=== PATIENT | male | born 1950 | race Caucasian/White ===

== ENCOUNTER 2023-05-05 05:19 | Observation (INO) ==
--- NOTE | 2023-03-30 12:02 | PAT Medication Instructions ---
Medication Instructions Date of Service March 30, 2023 Home Medications cholecalciferol (vitamin D3) 25 mcg (1,000 unit) capsule 1,000 units PO QAM gabapentin 300 mg capsule 300 mg PO BID fluticasone propionate 50 mcg/actuation nasal spray,suspension 1 spray intranasal QAM meloxicam 15 mg tablet 15 mg PO HS MEDICATION INSTRUCTIONS: Continue as directed fluticasone propionate 50 mcg/actuation nasal spray,suspension 1 spray intranasal QAM ASK your surgeon for instructions meloxicam 15 mg tablet 15 mg PO HS DO NOT take the morning of surgery cholecalciferol (vitamin D3) 25 mcg (1,000 unit) capsule 1,000 units PO QAM Take morning of surgery With a small sip of water, OTHERWISE NOTHING TO EAT OR DRINK AFTER MIDNIGHT: gabapentin 300 mg capsule 300 mg PO BID Take evening before surgery gabapentin 300 mg capsule 300 mg PO BID Other Notes If you have any questions please call us at [phone] or [phone] or [phone] or [phone]
--- NOTE | 2023-04-09 10:26 | Anesthesiology Consultation ---
Date of Service April 09, 2023 Assessment & Plan (1) Encounter for pre-operative examination: Chart Review Chart Review: Acceptable Risk for Surgery (pending PCP clearance 04/14/23) and Patient seen in Pre Admission Testing -Awaiting PCP clearance - scheduled next week (04/14/23) [facility] Pt currently scheduled as 23 hours observation. If surgeon decides to change patient to [facility] Day [facility], patient would be acceptable risk for TSA, pending p atient is motivated, has good support and surgeon's office completes [facility] preop requirements. Per PAT appt on 04/09/23, patient denies any recent travel or large group a ctivities. Pt is vaccinated for Covid. Will leave to surgeon's discretion if preop Covid testing needed. Educated on importance of using Covid precautions one week prior to surgery History Surgery Operation Date: 05/05/23 07:15 Proposed Procedures p Right Total Shoulder Arthroplasty Reverse - Dez Bojorquez MD Height/Weight Height: 5 ft 11 in Weight: 88.2 kg Allergies Allergy/AdvReac Type Severity Reaction Status Date / Time No Known Allergies Allergy Verified 03/30/23 10:46 Medications Home Medications Medication Instructions Recorded Confirmed Last Taken cholecalciferol (vitamin D3) 25 1,000 units PO QAM 08/11/19 03/30/23 Unknown mcg (1,000 unit) capsule gabapentin 300 mg capsule 300 mg PO BID 08/11/19 03/30/23 Unknown fluticasone propionate 50 1 spray intranasal QAM 03/30/23 03/30/23 Unknown mcg/actuation nasal spray,suspension meloxicam 15 mg tablet 15 mg PO HS 03/30/23 03/30/23 Unknown Past Medical History Medical History History of COVID-19 2021>resolved Exercise / Class Metabolic Activity II 4-5 Yardwork/Stairs/Walk up hill (one flight of stairs- no chest pain or SOB ) Past Family History Family History Mother Stroke Father Stroke Other No family history of adverse response to anesthesia Past Surgical History Surgical History H/O parathyroidectomy partial d/t elevated calcium level (around 2008) History of cataract surgery rt/left History of colonoscopy Lower extremity surgery planned left femur repair *hardware intact [place] teeth removed Past Anesthesia History No Hx of Anesthesia Complications and No Family Hx of Anesthesia Complications History of PONV No Hx of PONV and No Hx of Motion Sickness Social History Smoking Status: Never smoker Do You Dip or Chew Tobacco: No Hx Alcohol Use: No substance use type: does not use Review of Systems Occ snoring - no witnessed apnea- no sleep study Patient denies chest pain, shortness of breath, dyspnea on exertion, reflux, cough, wheezing, palpitations. No hx of seizures, stroke, [place]. No hx of blood clots or blood transfusions Physical Exam Vital Signs VITALS BP 164/84 P 60 TEMP 97.5 SP02 95% RESP 16 Constitutional no acute distress ENMT Mouth: no TMJ clicking Thyromental Distance: > or= 3.5 Finger Breadths (3.5) Mallampati Class: I Crowns to side teeth Neck neck extension not limited Respiratory normal respiratory effort; no respiratory distress Auscultation: lungs clear to auscultation bilaterally; no wheezes Cardiovascular Rate/Rhythm: regular rate and regular rhythm Heart Sounds: no murmur Vessels: no carotid bruit Musculoskeletal Spine: no pain with cervical ROM Extremities: extremities normal to inspection Psychiatric Orientation: alert Lab Results Anesthesia Preop Results Results Anesthesia Widget: WBC 4.64 K/ul (4.8-10.8) L 04/09/23 Hgb 15.8 g/dl (14.0-18.0) 04/09/23 Hct 46.6 % (42.0-52.0) 04/09/23 Plt 230 K/uL (130-400) 04/09/23 Na 138 mmol/L (136-145) 04/09/23 K 4.6 mmol/L (3.5-5.1) 04/09/23 Cl 104 mmol/L (98-107) 04/09/23 CO2 29 mmol/L (21-32) 04/09/23 BUN 20 mg/dl (6-23) 04/09/23 Creat 0.99 mg/dl (0.6-1.4) 04/09/23 Glucose Level 86 mg/dl (70-99(Fasting)) 04/09/23 PT 11.3 Seconds (9.0-12.0) 04/09/23 PTT 27.6 Seconds (21.0-31.0) 04/09/23 INR 1.0 (0.9-1.1) 04/09/23 Urine Color Yellow 04/09/23 Urine Appearance Clear (Clear) 04/09/23 Urine pH 5.5 (4.5-7.5) 04/09/23 Urine Specific [place] 1.011 (1.000-1.030) 04/09/23 Urine Protein Negative (Negative) 04/09/23 Urine Glucose (UA) Negative (Negative) 04/09/23 Urine Ketones Negative (Negative) 04/09/23 Urine Blood Negative (Negative) 04/09/23 Urine Nitrite Negative (Negative) 04/09/23 Urine Bilirubin Negative (Negative) 04/09/23 Urine Urobilinogen Negative (Negative) 04/09/23 Urine Leukocyte Esterase Negative (Negative) 04/09/23 Blood Type O Positive 04/09/23 Antibody Screen NEGATIVE 04/09/23 Testing Electrocardiogram Date: 04/09/23 Findings: + SB @ (56bpm ) Incomplete RBBB Chest X-Ray Date: 04/09/23 Findings: + NAD COVID-19 Risk Screen Screening Information COVID-19 Screen Date: 04/09/23 Exposure 21 Days Family/Household +COVID Last 21 Days: No Exposure 10 Days Any COVID Exposure Last 10 Days: No Symptoms Last 10 Days Experienced COVID Sx Last 10 Days: No + COVID 0-90 Days COVID + in Last 0-90 Days: No Risk Plan COVID Risk Plan: No Risk Identified Patient Education COVID Preop Screening Education Complete: Yes
--- NOTE | 2023-05-04 12:19 | History & Physical Report ---
Date of Service May 04, 2023 Assessment & Plan (1) Full thickness rotator cuff tear: Plan: Treatment options discussed with the patient. He has failed conservative measures and would like to proceed with surgery. Risks, benefits and alternatives to surgery including but not limited to infection, DVT, pain, stiffness, need for revision surgery, damage to blood vessels, damage to nerves, PE, , were discussed with the patient and they wish to proceed. Plan on right reverse total shoulder arthroplasty scheduled for 05/05/23 at [facility] with Dr. Bojorquez. All questions answered. Patient will f/u post op. Rotator cuff tear trauma status: traumatic Encounter type: subsequent encounter Laterality: right Qualified Code(s): S46.011D - Strain of muscle(s) and tendon(s) of the rotator cuff of right shoulder, subsequent encounter History of Present Illness Chief Complaint: Right shoulder pain Primary Care Provider: Yosef Luu MD 72yo male with no significant PMHx presents with ongoing right shoulder pain and dysfunction. He suffered a fall off of a ramp of a truck injuring his shoulder. MRI demonstrated massive, retracted tear of his rotator cuff. He has failed conservative measures and would like to proceed with surgery. Patient denies headaches, sweats, fevers, chills, double vision, blurred vision, cough, sore throat, dysphagia, chest pain, sob, wheezing, n/v/d/c, numbness, tingling, fatigue, urinary symptoms, mood disorders. ROS positive for right shoulder pain and stiffness. Allergies Allergy/AdvReac Type Severity Reaction Status Date / Time No Known Allergies Allergy Verified 03/30/23 10:46 Home Medications Medication Instructions Recorded Confirmed Type cholecalciferol (vitamin D3) 25 1,000 units PO QAM 08/11/19 03/30/23 History mcg (1,000 unit) capsule gabapentin 300 mg capsule 300 mg PO BID 08/11/19 03/30/23 History fluticasone propionate 50 1 spray intranasal QAM 03/30/23 03/30/23 History mcg/actuation nasal spray,suspension meloxicam 15 mg tablet 15 mg PO HS 03/30/23 03/30/23 History Past Med/Surg History Medical History (Updated 05/04/23 @ 12:18 by Tariq Dubois PA-C) Glaucoma Per records History of COVID-2021>resolved Hyperparathyroidism Per records s/p parathyroidectomy 2008 Surgical History H/O parathyroidectomy partial d/t elevated calcium level (around 2008) History of cataract surgery rt/left History of colonoscopy Lower extremity surgery planned left femur repair *hardware intact [place] teeth removed Family History Mother Stroke Father Stroke Other No family history of adverse response to anesthesia Social History (System 02/07/19 @ 15:23 by Brooke Santos) Smoking Status: Never smoker Smoking End Date: smoked for 1 year at age 19; Second Hand Exposure: No; Do You Dip or Chew Tobacco: No; Hx Alcohol Use: No Preferred Language: Syriac Claim Clerk Required: No Beliefs That Will Affect Care: None Current Living Situation: Spouse Feels Safe at Home: Yes Safety Concerns: Feels Safe At This Time Assistive Devices: Glasses Assistive Devices Comment: reading glasses Review of Systems All systems reviewed & are unremarkable except as noted in HPI & below Physical Exam Constitutional: well developed and well nourished; no acute distress Eyes: PERRL, conjunctivae normal, anicteric sclerae ENMT: external ear and nose normal, oropharynx normal Neck: trachea midline, no thyromegaly Respiratory: normal respiratory effort, lungs clear to auscultation Cardiovascular: RRR, no murmur, no edema Musculoskeletal: Right shoulder: Painful ROM. FF to 45 degrees, abduction to 45 degrees, ER to 45 degrees. Tenderness anterolateral acromion. Positive impingement signs, positive hornblower's sign. Weakness with strength testing. 3/5 abduction 3+/5 ER, 5/5 IR Skin: no rashes, warm and dry Neurologic: patellar DTR's 2+ bilat, sensation intact Psychiatric: A+Ox3, euthymic affect Results & Data Diagnostic Findings Right shoulder X-rays demonstrate degenerative changes of his AC joint, type II/III acromion. No fractures. MRI demonstrates large retracted full-thickness tear of his supraspinatus into his infraspinatus. There appears to be very little tendon. Tear is retracted to the level of the glenohumeral joint.
[2023-05-05] MEDS ORDERED: TRANEXAMIC ACID 1,000 MG **IV Pre-op IV SCH (06:00)
[2023-05-05] MEDS ORDERED: FAMOTIDINE 20 MG TAB PO SCH (06:00)
[2023-05-05] MEDS ORDERED: dexAMETHasone 4 MG TAB PO SCH (06:00)
[2023-05-05] MEDS ORDERED: ceFAZolin 2000MG 2,000 MG/15 ML SYR IV SCH (06:00)
[2023-05-05] MEDS ORDERED: CeleBREX 200 MG CAP PO SCH (06:00)
[2023-05-05] MEDS ORDERED: GABAPENTIN 300 MG CAP PO SCH (06:00)
[2023-05-05] MEDS ORDERED: LR 15ML/HR IV SCH (06:00)
[2023-05-05] MEDS ORDERED: METOCLOPRAMIDE HCL 10 MG TABLET PO SCH (06:00)
[2023-05-05] MEDS ORDERED: LR 60ML/HR IV SCH (06:00)
[2023-05-05] MEDS ORDERED: TRANEXAMIC ACID 1,000 MG **IV Intra-op IV SCH (06:00)
[2023-05-05] MEDS ORDERED: ACETAMINOPHEN 500 MG TAB PO SCH (06:00)
[2023-05-05] MEDS ORDERED: BUPIVACAINE 0.5 % 5 MG/1 ML PF 10ML VIAL ONE (06:19)
[2023-05-05] MEDS ORDERED: fentaNYL citrate PF 100 MCG/2 ML VIAL ONE (06:52)
[2023-05-05] MEDS ORDERED: MIDAZOLAM HCL 1 MG/ML 2ML VIAL ONE ×2 (06:52→07:08)
[2023-05-05] MEDS ORDERED: LIDOCAINE 2% 2 ML VIAL/AMP(20MG/ML) INFIL ONE (06:53)
[2023-05-05] MEDS ORDERED: PROPOFOL IV EMULSION 10 MG/ML 20 ML VIAL IV ONE (06:53)
[2023-05-05] MEDS ORDERED: DEXAMETHASONE SOD INJ 4 MG/ML VIAL ONE (06:53)
[2023-05-05] MEDS ORDERED: ONDANSETRON INJ 2 MG/ML 2 ML VIAL ONE (06:53)
[2023-05-05] MEDS ORDERED: ePHEDrine sulfate 50 MG/ML AMP IV PRN (07:01)
[2023-05-05] MEDS ORDERED: fentaNYL citrate PF 100 MCG/2 ML VIAL IV PRN (07:01)
[2023-05-05] MEDS ORDERED: HYDROmorphone INJ 2 MG/ML SYR/VIAL IV PRN (07:01)
[2023-05-05] MEDS ORDERED: PROMETHAZINE HCL 12.5 MG in SODIUM CHLORIDE 0.9% 50 ML IV PRN (07:01)
[2023-05-05] MEDS ORDERED: ATROPINE SULFATE 0.1 MG/ML 10ML SYR IV PRN (07:01)
[2023-05-05] MEDS ORDERED: ONDANSETRON INJ 2 MG/ML 2 ML VIAL IV PRN ×2 (07:01→11:12)
--- NOTE | 2023-05-05 07:14 | History & Physical Bridge Note ---
Date of Service May 05, 2023 History & Physical Bridge Note I have examined the patient, reviewed the History & Physical and in the interval since the performance of the History & Physical I have noted the following changes of clinical significance: no changes noted
[2023-05-05] MEDS ORDERED: GLYCOPYRROLATE 0.2 MG/ML VIAL ONE (07:43)
[2023-05-05] MEDS ORDERED: ePHEDrine sulfate 50 MG/ML AMP ONE (07:48)
[2023-05-05] MEDS ORDERED: SODIUM CHLORIDE 0.9% PF INJ 10 ML VIAL ONE (07:48)
[2023-05-05] MEDS ORDERED: PHENYLEPHRINE HCL 10 MG/ML VIAL ONE (07:48)
[2023-05-05] MEDS ORDERED: SUGAMMADEX SODIUM 200 MG/2 ML VIAL IV ONE (08:39)
[2023-05-05] MEDS ORDERED: ROCURONIUM BROMIDE 10 MG/ML 5 ML VIAL IV ONE (09:17)
--- NOTE | 2023-05-05 10:08 | Operative Report ---
Post Operative Report Pre & Post Diagnosis Operation Date: 05/05/23 07:15 Pre-Op Diagnosis: Right Shoulder Rotator Cuff Arthropathy, large irreparable rotator cuff tear, pseudoparalysis Post-Op Diagnosis: Right Shoulder Rotator Cuff Arthropathy, large irreparable rotator cuff tear, biceps tendinopathy, adhesive capsulitis, pseudoparalysis. I identified the patient and participated in the time-out.: Yes Procedure Operation Date: 05/05/23 07:15 Actual Procedures p Right Reverse Total Shoulder Arthroplasty(Right) ,biceps tenodesis- Dez Bojorquez MD Surgeon Dez Bojorquez MD Spring Setter Donovan CATES Estimated Blood Loss 150 Findings Consistent with Post-Op Diagnosis Specimens Humeral head Drains 2 Hemovac Anesthesia Type General Regional Complications none Disposition Disposition: Recovery Room Indications 72-year-old male with acute on chronic injury to right shoulder resulting in pseudoparalysis and weakness with MRI demonstrating large retracted rotator cuff tear with poor prognosis for repair. Patient also has pseudoparalysis. Active forward elevation and abduction was 20 degrees only. Deltoid functional when arm posted overhead. Description of Procedure The patient was taken to the operating room and anesthetized under regional block and general anesthetic. The patient was positioned on the operating table in a 30 beach chair position with a towel roll under the medial border of the right scapula. The arm was draped free to be able to manipulate the shoulder as needed. The right upper extremity was prepped and draped in usual sterile fashion. Exam demonstrated 100 degrees of forward flexion and 70 degrees of abduction 30 degrees external rotation 60 degrees internal rotation consistent with some element of adhesive capsulitis.. An anterior deltopectoral approach was performed. A longitudinal incision was made in the deltopectoral interval. The skin was incised sharply. Subcutaneous flaps were elevated off the fascia. The cephalic vein was dissected out and retracted lateral with the deltoid. The clavipectoral fascia was divided at the lateral margin of the conjoined tendon and extended up to the CA ligament. The following findings were noted: Chronic thickened subacromial bursitis with a large rotator cuff tear involving the supraspinatus and infraspinatus which were both torn and retracted with an intact teres minor and intact subscapularis. There is widening of the uncovered biceps tendon with chronic tendinopathy intra-articularly and tenosynovitis extending into the bicipital groove area. There are some a variant oblique muscle fibers across the subscapularis.. The upper centimeter of the pectoralis was released for inferior exposure. A self-retaining retractor was placed. The biceps tendon was tenodesed to the pectoralis tendon with #2 FiberWire. The proximal biceps was resected. The a variant fibers were released exposing the normal subscapularis muscle fibers which were split in the direction of the fibers at the level of the circumflex vessels. The circumflex vessels were identified and tied off with silk ties and divided laterally. A Kitner elevator was used to free up the inferior fibers of the subscapularis off of the capsule. The axillary nerve was identified with a tug test and protected with a blunt [place] retractor between the nerve and the capsule. The subscapularis tendon was then taken down off of the lesser tuberosity subperiosteally, a Vicryl traction suture was placed and a subperiosteal dissection was performed along the neck of the humerus as the arm was gradually externally rotated exposing the humeral head. The humeral head findings demonstrated normal articular surface and no osteophytes. A Green elevator was used to assist in releasing the capsule of the neck of the humerus. The capsule was divided with Nicholson scissors down to the glenoid released off the anterior glenoid and the rotator interval was released to meet the capsular release and a 360 release of the subscapularis was accomplished. The capsule was thickened and inflamed consistent with adhesive capsulitis. A Fukuda retractor was placed into the joint retracting the humeral head posterior. Glenoid findings demonstrated intact articular cartilage. The labrum and biceps tendon was resected. an anterior-inferior and posterior inferior capsular release were performed with electrocautery and a Green elevator on bone with the axillary nerve protected inferiorly by the retractor. Attention was then taken to the humeral preparation. The cutting guide was placed into the humeral head. It was positioned at 20 of retroversion. Oscillating saw was used to resect the humeral head giving the cut above the level of the posterior rotator cuff insertion site. The humerus was then prepared for the stem. I used the ascend flex stem from [employer]. The sizing broaches were used followed by trial broaches up to a size 5 which had the appropriate fit and fill. The appropriate sized cut protector was placed. The humerus was then retracted posterior to the glenoid. The glenoid was sized for a 25 mm baseplate. The guide for the baseplate was positioned in a 10 inferior tilt and the central drill hole was made. The reamer for the 25 baseplate was used. The central drill was widened for the peg. The aequalis hydroxyapatite-coated standard post 25 mm baseplate was impacted into position. The base plate was transfixed with superior and inferior locking screws and anterior and posterior compression screws with stable fixation. The fan reamer was used for the 36 millimeter glenoid sphere. After irrigation the 36+2 eccentric glenoid sphere was impacted onto the baseplate and the security screw was tightened. Attention was taken back to the humerus. The cut protector was removed and the +0 high offset humeral tray trial was assembled to the trial stem rotated appropriately to get bony coverage and then screwed in position. A trial reduction was performed. A +6, 36 reversed trial insert demonstrated good stability and no shuck. The trials were removed. 3 drill holes are made into the harder bone in the bicipital groove area and 3 #5 FiberWire sutures were placed transosseously. The canal was irrigated with pulsatile lavage saline solution. The final component was assembled. The final component was 5B long ascend Flex PTC stem assembled to the +0 high offset tray with a +6, 36 reversed polyethylene insert. This was then impacted into the humerus with a tight press-fit. It was reduced to the glenoid sphere. Stability was verified. Subscapularis was repaired with the #5 FiberWire sutures using Candelario-Jcarlos suture technique. Lateral row soft tissue repair was performed with #2 FiberWire [id number] sutures. The pectoralis was repaired with #2 FiberWire [id number]-sh-landr sutures reinforcing the biceps tendon tenodesis. The arm was taken through a range of motion which demonstrate d 135 degrees forward flexion, 90 degrees abduction, 60 degrees external rotation and 70 degrees internal rotation without any tension on the repair of the subscapularis. The implant was stable through the range of motion tested. The wound was copiously irrigated. 2 Hemovac drains were placed. The deltopectoral interval was closed with rsvtfp-el-[id number] #1 Vicryl sutures. The subcutaneous tissues were closed with 2-0 Vicryl sutures. The skin was closed with beltran. Sterile dressings were applied and a shoulder immobilizer. Donovan CATES, my physician senior assistant manager acted as seed analysis laboratory assistant throughout the procedure .He performed functions including patient positioning, arm positioning, prepping and draping, soft tissue retraction, instrument management, suture management and performed the subcutaneous and skin closure and will participate in the postoperative care of the patient. I attest to the content of the Intraoperative Record and any orders documented therein. Any exceptions are noted below.
--- NOTE | 2023-05-05 10:41 | Anesthesiology Progress Note ---
Date of Service May 05, 2023 Anesthesia Post Procedure Vital Signs Vital Signs: Temp Pulse Pulse Resp BP Pulse Ox O2 Del Method 05/05/23 10:30 36.3 C L 82 14 145/84 H 95 Room Air 05/05/23 10:20 86 17 146/77 H 96 Oxymask 05/05/23 10:11 36.3 C L 79 16 163/70 H 99 Oxymask 05/05/23 05:41 36.7 C 74 18 176/96 H 99 Room Air O2 Flow Rate 05/05/23 10:30 05/05/23 10:20 6 05/05/23 10:11 6 05/05/23 05:41 Pain Intensity Right Shoulder: Pain Intensity: 0 Transfer of Care Handoff Completed per policy Notes Mental Status: alert / awake / arousable and participated in evaluation Patient Amnestic to Procedure: Yes Nausea / Vomiting: adequately controlled Pain: adequately controlled Airway Patency, RR, SpO2: stable & adequate BP & HR: stable & adequate Hydration State: stable & adequate Anesthetic Complications: no major complications apparent
--- NOTE | 2023-05-05 10:52 | XRay Report ---
RIGHT SHOULDER 2 VIEWS CLINICAL HISTORY: Postoperative examination. FINDINGS: 2 portable views of the right shoulder are obtained. No prior studies are available for [facility] at the time of dictation. The skeletal structures are osteopenic. A right shoulder arthroplas ty is in near-anatomic alignment. No acute fracture is seen. Skin clips, a surgical drain, subcutaneo us gas, and soft tissue swelling overlying the right shoulder are expected postsurgical changes. The visualized right lung parenchyma appears clear. IMPRESSION: Expected postoperative findings status post right shoulder arthroplasty. No acute fractur e is seen. Electronically signed by: Ritesh Schmidt M.D. 05/05/2023 10:51 AM
[2023-05-05] MEDS ORDERED: TAMSULOSIN HCL 0.4 MG CAP PO PRN (11:12)
[2023-05-05] MEDS ORDERED: METOCLOPRAMIDE HCL INJ 5 MG/ML 2 ML VIAL IV PRN (11:12)
[2023-05-05] MEDS ORDERED: bisacodyL 10 MG SUPP PR PRN (11:12)
[2023-05-05] MEDS ORDERED: MAGNESIUM HYDROXIDE SUSP 30 ML UDC PO PRN (11:12)
[2023-05-05] MEDS ORDERED: oxyCODONE HCL IR 5 MG TAB (IMMEDIATE RELEASE) PO PRN (11:12)
[2023-05-05] MEDS ORDERED: SODIUM CHLORIDE 0.9% 1000ML 1,000 ML IV SCH (11:12)
[2023-05-05] MEDS ORDERED: NALOXONE HCL 0.4 MG/1 ML VIAL/CARP IV PRN (11:12)
[2023-05-05] MEDS ORDERED: HYDROmorphone INJ 0.5 MG/0.5 ML SYR IV PRN (11:12)
[2023-05-05] MEDS: ACETAMINOPHEN 500 MG TAB PO SCH ×2 (14:36→23:16)
[2023-05-05] MEDS: ceFAZolin 2000MG 2,000 MG/15 ML SYR IV SCH ×2 (15:55→23:17)
[2023-05-05] MEDS: GABAPENTIN 300 MG CAP PO SCH (20:13)
[2023-05-05] MEDS: DOCUSATE SODIUM 100 MG CAP PO SCH (20:13)
[2023-05-05] MEDS ORDERED: SENNA 8.6 MG TAB PO SCH (21:00)
[2023-05-06] MEDS: ACETAMINOPHEN 500 MG TAB PO SCH (05:18)
[2023-05-06 07:05] LABS: Basophils # (auto) 0.02 K/uL (0-0.2); Basophils % (auto) 0.1 %; Hematocrit (blood only) 39.5 % (42.0-52.0); Hemoglobin 13.4 g/dl (14.0-18.0); Immature Granulocytes # (auto) 0.08 K/uL (0.01-0.20); Immature Granulocytes % (auto) 0.5 %; Lymphocytes # (auto) 0.66 K/uL (1.2-3.4); Lymphocytes % (auto) 4.5 %; Mean Corpuscular Hemoglobin 30.2 pg (25.0-34.0); Mean Corpuscular Hgb Conc 33.9 g/dL (32.0-36.0); Mean Platelet Volume 9.2 fL (9.4-12.4); Monocytes # (auto) 1.07 K/uL (0.11-0.59); Monocytes % (auto) 7.3 %; Neutrophils # (auto) 12.92 K/uL (1.40-6.50); Neutrophils % (auto) 87.6 %; Platelet Count 280 K/uL (130-400); RDW Coefficient of Variation 12.6 % (11.5-14.5); RDW Standard Deviation 41.1 fL (36.4-46.3); Red Blood Count 4.44 M/uL (4.70-6.10); White Blood Count 14.75 K/ul (4.8-10.8)
[2023-05-06 07:17] LABS: BUN Creatinine Ratio 17.3 (10-20); Calcium 9.5 mg/dl (8.6-10.3); Creatinine Clr Calc Pharmacy 63.7 ml/min; Est GFR (African American) 76.8 ml/min; Est GFR (Non-African American) 66.2 ml/min; Potassium 4.4 mmol/L (3.5-5.1)
--- NOTE | 2023-05-06 07:36 | Orthopedic Progress Note ---
Date of Service May 06, 2023 Assessment & Plan (1) Status post reverse arthroplasty of right shoulder: Plan: Postop day #1 right reverse total shoulder arthroplasty -PT/OT: No shoulder range of motion. May do elbow/wrist/hand motion, shrugs, pendulums -Pain management as written -AM labs-hemoglobin 13.4 from 15 preop acute blood loss anemia due to surgical loss vs dilutional. Leukocytosis likely reactive due to surgical stress/perioperative steroids. Patient is asymptomatic. Chemistries pending. -DVT prophylaxis-SCDs -D/c planning-plan on discharge home today after therapy. Admission and Anticipated Discharge Date Admission Date: May 05, 2023 Subjective Patient is postop day 1 right reverse total shoulder arthroplasty. He is doing well this morning. Pain is controlled. He has no other complaints. Denies chest pain, shortness of breath, nausea/vomiting/diarrhea, headaches or dizziness. Review of Systems Review of Systems: All systems reviewed & are unremarkable except as noted in Subjective Physical Exam Physical Exam: Right shoulder: Sling in place. Dressing is clean, dry, intact. Hemovac on suction. Fingers are mobile with good baby formula mixer strength. Distally neurovascular status and sensation is grossly intact. Constitutional: WD/WN, vitals as above Results & Data Vital Signs (Past 12 Hours) Vital Signs Temp Pulse Resp BP Pulse Ox O2 Del Method 05/06/23 03:08 36.6 C 82 16 166/80 H 95 Room Air 05/05/23 20:15 Room Air 05/05/23 22:24 36.4 C L 95 H 16 172/75 H 98 Room Air Laboratory Results Lab Results 05/06/23 05/06/23 Range/Units 06:15 06:15 WBC 14.75 H (4.8-10.8) K/ul RBC 4.44 L (4.70-6.10) M/uL Hgb 13.4 L (14.0-18.0) g/dl Hct 39.5 L (42.0-52.0) % MCV 89.0 (80.0-100.0) fL MCH 30.2 (25.0-34.0) pg MCHC 33.9 (32.0-36.0) g/dL RDW Std Deviation 41.1 (36.4-46.3) fL RDW Coeff of [place] 12.6 (11.5-14.5) % Plt Count 280 (130-400) K/uL MPV 9.2 L (9.4-12.4) fL Immature Gran % (Auto) 0.5 % Neut % (Auto) 87.6 % Lymph % (Auto) 4.5 % [place] % (Auto) 7.3 % Eos % (Auto) 0.0 % Baso % (Auto) 0.1 % Neut # (Auto) 12.92 H (1.40-6.50) K/uL Lymph # (Auto) 0.66 L (1.2-3.4) K/uL [place] # (Auto) 1.07 H (0.11-0.59) K/uL Eos # (Auto) 0.00 (0-0.50) K/uL Baso # (Auto) 0.02 (0-0.2) K/uL Immature Gran # (Auto) 0.08 (0.01-0.20) K/uL Sodium 137 (136-145) mmol/L Potassium 4.4 (3.5-5.1) mmol/L Chloride 104 (98-107) mmol/L Carbon Dioxide 26 (21-32) mmol/L Anion Gap 7 (3-11) BUN 19 (6-23) mg/dl Creatinine 1.10 (0.6-1.4) mg/dl Est Cr Clr Drug Dosing 63.7 ml/min Est GFR ( Amer) 76.8 ml/min Est GFR (Non-Af Amer) 66.2 ml/min BUN/Creatinine Ratio 17.3 (10-20) Glucose 120 H (70-99(Fasting)) mg/dl Calcium 9.5 (8.6-10.3) mg/dl
[2023-05-06] MEDS: GABAPENTIN 300 MG CAP PO SCH (08:03)
[2023-05-06] MEDS: DOCUSATE SODIUM 100 MG CAP PO SCH (08:07)
[2023-05-06] MEDS ORDERED: FLUTICASONE PROPIONATE NA SPR 16 GM BTL SCH (09:00)
[2023-05-06] MEDS ORDERED: MULTIVITAMIN TAB PO SCH (09:00)
[2023-05-06] MEDS ORDERED: CHOLECALCIFEROL 1,000 UNITS 25 MCG TAB PO SCH (09:00)
--- NOTE | 2023-05-06 11:46 | Discharge Summary ---
Date of Service May 06, 2023 Admission HPI Per Admitting Provider 72yo male with no significant PMHx presents with ongoing right shoulder pain and dysfunction. He suffered a fall off of a ramp of a truck injuring his shoulder. MRI demonstrated massive, retracted tear of his rotator cuff. He has failed conservative measures and would like to proceed with surgery. Patient denies headaches, sweats, fevers, chills, double vision, blurred vision, cough, sore throat, dysphagia, chest pain, sob, wheezing, n/v/d/c, numbness, tingling, fatigue, urinary symptoms, mood disorders. ROS positive for right shoulder pain and stiffness. Admission Exam Per Admitting Provider Constitutional: well developed and well nourished; no acute distress Eyes: PERRL, conjunctivae normal, anicteric sclerae ENMT: external ear and nose normal, oropharynx normal Neck: trachea midline, no thyromegaly A Respiratory: normal respiratory effort, lungs clear to auscultation Cardiovascular: RRR, no murmur, no edema Musculoskeletal: Right shoulder: Painful ROM. FF to 45 degrees, abduction to 45 degrees, ER to 45 degrees. Tenderness anterolateral acromion. Positive impingement signs, positive hornblower's sign. Weakness with strength testing. 3/5 abduction 3+/5 ER, 5/5 IR Skin: no rashes, warm and dry Neurologic: patellar DTR's 2+ bilat, sensation intact Psychiatric: A+Ox3, euthymic affect Principal Diagnosis Right shoulder rotator cuff arthropathy Discharge Exam Right shoulder: Sling in place. Dressing is clean, dry, intact. Hemovac on suction. Fingers are mobile with good lime puller strength. Distally neurovascular status and sensation is grossly intact. Constitutional WD/WN, vitals as above Discharge Data Allergies Allergy/AdvReac Type Severity Reaction Status Date / Time No Known Allergies Allergy Verified 05/05/23 05:38 Procedures Performed Operation Date: 05/05/23 07:15 Actual Procedures p Right Reverse Total Shoulder Arthroplasty(Right) - Dez Bojorquez MD Ordered Studies 05/05/23 05:00 US - OR guided needle placemen Routine Hospital Course (1) Status post reverse arthroplasty of right shoulder: Postop day #1 right reverse total shoulder arthroplasty -PT/OT: No shoulder range of motion. May do elbow/wrist/hand motion, shrugs, pendulums -Pain management as written -AM labs-hemoglobin 13.4 from 15 preop acute blood loss anemia due to surgical loss vs dilutional. Leukocytosis likely reactive due to surgical stress/perioperative steroids. Patient is asymptomatic. Chemistries pending. -DVT prophylaxis-SCDs -D/c planning-plan on discharge home today after therapy. Lab Results 05/06/23 05/06/23 Range/Units 06:15 06:15 WBC 14.75 H (4.8-10.8) K/ul RBC 4.44 L (4.70-6.10) M/uL Hgb 13.4 L (14.0-18.0) g/dl Hct 39.5 L (42.0-52.0) % MCV 89.0 (80.0-100.0) fL MCH 30.2 (25.0-34.0) pg MCHC 33.9 (32.0-36.0) g/dL RDW Std Deviation 41.1 (36.4-46.3) fL RDW Coeff of [place] 12.6 (11.5-14.5) % Plt Count 280 (130-400) K/uL MPV 9.2 L (9.4-12.4) fL Immature Gran % (Auto) 0.5 % Neut % (Auto) 87.6 % Lymph % (Auto) 4.5 % [place] % (Auto) 7.3 % Eos % (Auto) 0.0 % Baso % (Auto) 0.1 % Neut # (Auto) 12.92 H (1.40-6.50) K/uL Lymph # (Auto) 0.66 L (1.2-3.4) K/uL [place] # (Auto) 1.07 H (0.11-0.59) K/uL Eos # (Auto) 0.00 (0-0.50) K/uL Baso # (Auto) 0.02 (0-0.2) K/uL Immature Gran # (Auto) 0.08 (0.01-0.20) K/uL Sodium 137 (136-145) mmol/L Potassium 4.4 (3.5-5.1) mmol/L Chloride 104 (98-107) mmol/L Carbon Dioxide 26 (21-32) mmol/L Anion Gap 7 (3-11) BUN 19 (6-23) mg/dl Creatinine 1.10 (0.6-1.4) mg/dl Est Cr Clr Drug Dosing 63.7 ml/min Est GFR ( Amer) 76.8 ml/min Est GFR (Non-Af Amer) 66.2 ml/min BUN/Creatinine Ratio 17.3 (10-20) Glucose 120 H (70-99(Fasting)) mg/dl Calcium 9.5 (8.6-10.3) mg/dl Total Time Total Time Spent Total Time Spent (In Minutes): 20 Discharge Plan Discharge Items Patient Disposition: Home - Self-Care Reason For Visit: POSTOP Discharge Diagnosis: Right shoulder rotator cuff arthropathy Activity: Per Instructions section Non-emergency contact: Surgeon Call non-emergency contact if: you have any medication questions, your pain is not controlled, your pain is concerning for you, you have a fever, your wound has increased redness, your wound has increased drainage and your wound pain has increased Follow-up/Referrals: Yosef Luu MD [Primary Care Provider] - Diet: Regular Addtl Attending Provider Instructions: ACTIVITY RECOMMENDATIONS: SELF CARE INSTRUCTIONS AFTER TOTAL SHOULDER ARTHROPLASTY REVERSE A. You may do daily exercises as taught in physical therapy while in hospital. No lifting with the operative arm. B. You are to wear your sling/immobilizer at all times EXCEPT when performing your daily exercises and for hygiene purposes. C. You may perform dry, daily dressing changes. Please keep your incision covered. You may shower 48 hours after surgery. Do not apply soap or any ointment/lotions directly over incision. Do not soak incision in bath tub/swimming pool. D. You may use ice as needed to operative shoulder. SPECIAL CARE INSTRUCTIONS: VERY IMPORTANT TO READ AND REVIEW A. There are a few signs you need to watch for after you are home. Call [facility] at [phone] if you experience any of the followin. Increased severe shoulder pain. Some pain is expected especially when you exercise. 2. Increased swelling in you shoulder or arm; pain or swelling in either upper extremity. 3. Any fluid drainage from the incision. 4. Shortness of breath or chest pain. B. Please call [facility] at [phone] if you have any questions or concerns about your operation or recovery. C. Call your physician if: 1. Temperature is greater than 101 degrees (F). 2. Pain is not relieved by prescribed pain medications. 3. Increase drainage or redness from incision. 4. Unanswered questions or concerns. FOLLOW UP VISIT: Please call [facility] at [phone] to schedule a follow up appointment with Dr. Bojorquez or his PA in 12-14 days from your surgery date. Stand-Alone Forms: [facility], Pain - Opioid Pain Management, Smoking Cessation Medications and DC Order Prescriptions: New acetaminophen [Tylenol Extra Strength] 500 mg Tablet 1,000 mg PO Q8 Qty: 60 0RF oxycodone 5 mg Tablet 5 - 10 mg PO .Q4h-6h MDD 6 PRN (Reason: pain) Qty: 30 0RF Rx Instructions: Ongoing therapy, Dr. Bojorquez supervising Continued gabapentin 300 mg capsule 300 mg PO BID cholecalciferol (vitamin D3) 1,000 unit capsule 1,000 units PO QAM fluticasone propionate 50 mcg/actuation [place],Suspension 1 spray INTRANASAL QAM Rx Instructions: administer into each nostril Discontinued meloxicam 15 mg Tablet 15 mg PO HS Discharge Orders: Discharge Order (Routine); Ordered 05/06/23 Ordered By: Tariq Busby/Other Patient Handouts: Rotator Cuff Repair Open Dc Admission Data Admit Date/Time: 05/05/23 10:16 Attending Provider: Dez Bojorquez Admit Provider: Dez Bojorquez Primary Care Provider: Yosef Luu I. Other Interventions: Discharge Summary Assessment (RN) Last Done: 05/06/23 10:32
== END 2023-05-06 11:14 | disposition home or self-care (01) ==
LOC: 3E 05:19 → ASU 05:19
DX: W17.89XA Other fall from one level to another, initial encounter; Z79.899 Other long term (current) drug therapy; E21.3 Hyperparathyroidism, unspecified; S46.011A Strain of muscle(s) and tendon(s) of the rotator cuff of right shoulder, initial encounter; Z86.16 Personal history of COVID-19; R29.818 Other symptoms and signs involving the nervous system